=== PATIENT | female | born 1985 | race Two or more races ===

== ENCOUNTER → 2025-05-08 | Outpatient (CLI) | payer OTHER | LOC: M PLALAB 12:09 | PROVIDERS: ATTEND Advanced Practice Midwife | DX: O36.80X0 Pregnancy with inconclusive fetal viability, not applicable or unspecified (principal) ==

== ENCOUNTER → 2025-05-10 | Outpatient (CLI) | payer OTHER | LOC: M PLALAB 07:47 | PROVIDERS: ATTEND Advanced Practice Midwife | DX: O36.80X0 Pregnancy with inconclusive fetal viability, not applicable or unspecified (principal); Z3A.00 Weeks of gestation of pregnancy not specified ==

== ENCOUNTER 2025-05-17 11:52 | Day surgery (SDC) | payer OTHER ==
[~2025-05-17] VITALS: Ht 154.9 cm; Wt 75.2 kg
[2025-05-17] MEDS ORDERED: dexAMETHasone 4 MG/ML 1 ML VIAL As Ordered ONE (13:46)
[2025-05-17] MEDS ORDERED: ONDANSETRON 4MG/2ML VIAL As Ordered ONE (13:46)
[2025-05-17] MEDS ORDERED: KETOROLAC 30 MG/ML 1 ML VIAL As Ordered ONE (13:46)
[2025-05-17] MEDS ORDERED: ACETAMINOPHEN 1000MG/100ML IV BAG As Ordered ONE (13:47)
[2025-05-17] MEDS ORDERED: MIDAZOLAM INJ 2 MG/2 ML VIAL As Ordered ONE (13:47)
[2025-05-17] MEDS ORDERED: HYDROMORPHONE HCL 0.5 MG/0.5 ML SYRINGE IV PRN (14:45)
[2025-05-17] MEDS ORDERED: ONDANSETRON 4MG/2ML VIAL IV PRN (14:45)
[2025-05-17] MEDS ORDERED: LR 1,000 ML IV SCH (14:45)
[2025-05-17] MEDS: DOXYCYCLINE HYCLATE 100 MG TABLET PO ONE (15:45)
[2025-05-17 17:32] VITALS: BP 107/66; TEMP 97.6; O2SAT 100
== END 2025-05-17 17:35 | disposition home or self-care (01) ==
LOC: M SDC 11:52
PROVIDERS: ATTEND Specialist
DX: O02.1 Missed abortion (principal); E07.9 Disorder of thyroid, unspecified; Z98.84 Bariatric surgery status; Z79.899 Other long term (current) drug therapy
CPT/HCPCS: 59820; 88305; J0131; J1100; J1885; J2250; J2405; J3010